=== PATIENT | female | born 1985 | race African-American/Black ===

== ENCOUNTER 2017-01-22 13:01 | Emergency (ER) | payer MEDICAID ==
[~2017-01-22] VITALS: Ht 162.6 cm; Wt 54.4 kg
[2017-01-22 14:11] LABS: Basophils # (auto) 0 uL; Basophils % (auto) 0.4 % (0.0-2.0); CONDITION Y; DEFINITIVE SEE PRINTOUT; Eosinophils # (auto) 0.1 uL; Eosinophils % (auto) 1.5 % (0.0-7.0); Hematocrit 37.1 % (36.0-46.0); Hemoglobin 12.4 g/dL (12.2-16.2); Lymphocytes % (auto) 32.6 % (10.0-50.0); Mean Corpuscular Hgb Conc. 33.4 g/dL (32.0-36.0); Mean Corpuscular Volume 77.9 fL (80.0-100.0); Mean Platelet Volume 9.3 fL (7.4-10.4); Monocytes # (auto) 0.8 uL; Neutrophils # (auto) 3.2 uL; Neutrophils % (auto) 52.5 % (37.0-80.0); Platelet Count (auto) 300 10^3/uL (140-450); Red Cell Distribution Width 15.1 % (11.6-16.0)
[2017-01-22 15:06] LABS: Albumin 3.9 g/dL (3.4-5.0); BUN/Creatinine Ratio 6.9; Bilirubin, Total 1.9 mg/dL (0.2-1.0); Calcium 8.7 mg/dL (8.5-10.1); Total Protein 8.1 g/dL (6.4-8.2)
[2017-01-22 15:41] LABS: Potassium 2.9 mmol/L (3.5-5.1)
[2017-01-22 16:08] LABS: Urine Bilirubin Negative (Negative); Urine Color Yellow (Yellow); Urine Glucose Normal (Normal); Urine Mucus FEW (None Seen); Urine Nitrite Negative (Negative); Urine RBC 1 /hpf (0 - 4); Urine Squamous Epithelial Cell FEW /hpf (<5); Urine Urobilinogen Normal (Negative); Urine pH 5.5 (5.0-8.0)
[2017-01-22 16:22] LABS: Urine Blood 1+ /uL (Negative); Urine Ketone 2+ (Negative)
[2017-01-22] MEDS ORDERED: SODIUM CHLORIDE 0.9% 1,000 ML IV ONE (16:31)
[2017-01-22] MEDS ORDERED: POTASSIUM CHL 20MEQ/100ML 100 ML IV ONE (16:45)
[2017-01-22] MEDS ORDERED: POTASSIUM CHL 20 Meq TABLET PO ONE (16:45)
[2017-01-22 19:29] VITALS: BP 130/87
== END 2017-01-22 20:23 | disposition home or self-care (01) ==
LOC: ER 13:01
DX: R53.1 Weakness (principal); E87.6 Hypokalemia
CPT/HCPCS: 36415; 80053; 81001; 81025; 85025; 93005; 94761; 96365; 96366; 99285; J3480; J7030